=== PATIENT | male | born 1995 | race Caucasian/White ===

== ENCOUNTER 2017-08-31 19:32 | Emergency (ER) | payer OTHER ==
[~2017-08-31] VITALS: Ht 180.3 cm; Wt 84.1 kg
[2017-08-31] MEDS ORDERED: EFFEXOR XR75 MG/CAP PO (19:40)
[2017-08-31 19:52] VITALS: BP 141/93; TEMP 98.2
[2017-08-31 21:06] VITALS: PULSE 70
== END 2017-08-31 21:07 | disposition home or self-care (01) ==
LOC: COL.ER 19:32
DX: S06.0X0A Concussion without loss of consciousness, initial encounter (principal); F41.9 Anxiety disorder, unspecified; R40.2412 Glasgow coma scale score 13-15, at arrival to emergency department; W01.198A Fall on same level from slipping, tripping and stumbling with subsequent striking against other object, initial encounter; Y92.002 Bathroom of unspecified non-institutional (private) residence as the place of occurrence of the external cause